=== PATIENT | female | born 1960 | race Caucasian/White ===

== ENCOUNTER 2020-09-15 13:32 | Inpatient (IN) | payer MEDICAID, OTHER ==
[~2020-09-15] VITALS: Ht 160 cm; Wt 86.4 kg
[2020-09-15 14:05] LABS: BASOPHILS % (AUTO) 0.6 % (0.0-5.0); EOSINOPHILS % (AUTO) 1.9 % (0.0-8.0); HEMATOCRIT 27.8 % (36-48); LYMPHOCYTES % (AUTO) 13.2 % (21.0-51.0); MEAN CORPUSCULAR HEMOGLOBIN 35.9 pg (27.0-33.0); MEAN CORPUSCULAR HGB CONC 33.8 g/dL (32.0-36.0); MEAN CORPUSCULAR VOLUME 106.1 fL (79-99); MONOCYTES % (AUTO) 17.4 % (3.0-13.0); NEUTROPHILS % (AUTO) 65.6 % (40.0-77.0); PLATELET COUNT (AUTO) 55 K/uL (130-400); RED BLOOD CELL COUNT(AUTO) 2.62 MIL/uL (4.00-5.50); RED CELL DISTRIBUTION WIDTH 19.1 % (11.0-15.5); WHITE BLOOD COUNT (AUTO) 5.4 K/uL (4.8-10.8)
[2020-09-15 14:12] LABS: INR 2.5 (0.85-1.15); PROTHROMBIN TIME 25.1 SEC (9.6-11.6)
[2020-09-15 14:14] LABS: PARTIAL THROMBOPLASTIN TIME 45.7 SEC (26.3-35.5)
[2020-09-15 14:16] LABS: ALANINE AMINOTRANSFERASE 28 U/L (12-78); ALCOHOL, BLOOD < 3 mg/dL (0-10); AMYLASE 31 U/L (25-115); ASPARTATE AMINOTRANSFERASE 47 U/L (10-37); BILIRUBIN,TOTAL 14.6 mg/dL (0.2-1.0); CARBON DIOXIDE 25 mmol/L (21-32); CHLORIDE 102 mmol/L (101-111); CREATINE KINASE, TOTAL 87 U/L (21-232); CREATININE 0.6 mg/dL (0.5-1.5); GLOMERULAR FILTR. RATE CALC 109 mL/min (>60); GLUCOSE,RANDOM 115 mg/dL (70-105); LIPASE 179 U/L (114-286); SODIUM SERUM 133 mmol/L (136-145); TOTAL PROTEIN, SERUM 6.8 g/dL (6.0-8.3); UREA NITROGEN, BLOOD 6 mg/dL (7-18)
[2020-09-15 14:20] LABS: AMMONIA 132 umol/L (11-32)
[2020-09-15 14:21] LABS: POTASSIUM 2.8 mmol/L (3.5-5.1)
[2020-09-15] MEDS ORDERED: POTASSIUM CHLORIDE 10% ELIXIR 20 MEQ/15 ML UDCUP ONE (14:36)
[2020-09-15] MEDS ORDERED: LACTULOSE 20 GM/30 ML UDCUP ONE (14:37)
[2020-09-15] MEDS ORDERED: LIDOCAINE HCL-MPF 1% 2ML VIAL ONE (15:42)
[2020-09-15] MEDS ORDERED: POTASSIUM CHLORIDE 20MEQ/100ML 100 ML IV ONE (15:42)
[2020-09-15] MEDS ORDERED: LORAZEPAM 2 MG/ML 1 ML VIAL IVP PRN (16:45)
[2020-09-15] MEDS: LACTULOSE 20 GM/30 ML UDCUP PO SCH (16:45)
[2020-09-15] MEDS ORDERED: PHARMACY COMMUNICATION MISC PRN (16:45)
[2020-09-15] MEDS: THIAMINE HCL 100 MG, FOLIC ACID 1 MG in 0.9%NACL 1000ML 1,000 ML IV SCH (18:00)
[2020-09-15 19:01] LABS: ALCOHOL, BLOOD < 3 mg/dL (0-10)
[2020-09-15 19:03] LABS: BILIRUBIN,DIRECT 12.2 mg/dL (0.0-0.3)
[2020-09-15 19:12] LABS: CREATININE 0.7 mg/dL (0.5-1.5); POTASSIUM 3.1 mmol/L (3.5-5.1)
[2020-09-16] VITALS (7 sets, daily range): BP systolic 115–128; BP diastolic 53–69
[2020-09-16] MEDS: LACTULOSE 20 GM/30 ML UDCUP PO SCH ×4 (00:45→23:48)
[2020-09-16 02:00] LABS: APPEARANCE,URINE Clear (CLEAR); BILIRUBIN,URINE Large (NEGATIVE); COLOR,URINE Dark Yellow (YELLOW); GLUCOSE, URINE (UA) Negative (NEGATIVE); KETONES,URINE Negative (NEGATIVE); LEUKOCYTE ESTERASE ,URINE Moderate (NEGATIVE); NITRATE,URINE Negative (NEGATIVE); OCCULT BLOOD,URINE Negative (NEGATIVE); PROTEIN,URINE Negative (NEGATIVE); UROBILINOGEN,URINE >=8.0 mg/dL (0.2-1.0)
[2020-09-16] MEDS ORDERED: LORAZEPAM 2 MG/ML 1 ML VIAL ONE (02:00)
[2020-09-16 02:16] LABS: AMPHET/METH SCREEN,URINE NEGATIVE (NEGATIVE); BACTERIA,URINE Few /HPF (None Seen); BARBITURATE SCREEN, URINE NEGATIVE (NEGATIVE); BENZODIAZEPINES SCREEN,URINE NEGATIVE (NEGATIVE); CANNABINOID SCREEN,URINE NEGATIVE (NEGATIVE); COCAINE SCREEN,URINE NEGATIVE (NEGATIVE); OPIATE SCREEN,URINE NEGATIVE (NEGATIVE); PHENCYCLIDINE SCREEN,URINE NEGATIVE (NEGATIVE); RBC,URINE 0-1 /HPF (0-1); TRICHOMONAS,URINE Few /LPF (None Seen)
[2020-09-16] MEDS ORDERED: KCL 20 MEQ ERTAB PO PRN (05:15)
[2020-09-16] MEDS ORDERED: POTASSIUM CHLORIDE 20MEQ/100ML 100 ML IV PRN (05:15)
[2020-09-16 06:04] LABS: BASOPHILS % (AUTO) 0.8 % (0.0-5.0); EOSINOPHILS % (AUTO) 2.5 % (0.0-8.0); HEMATOCRIT 26.9 % (36-48); LYMPHOCYTES % (AUTO) 16.3 % (21.0-51.0); MEAN CORPUSCULAR HEMOGLOBIN 35.6 pg (27.0-33.0); MEAN CORPUSCULAR HGB CONC 33.5 g/dL (32.0-36.0); MEAN CORPUSCULAR VOLUME 106.3 fL (79-99); MONOCYTES % (AUTO) 16.3 % (3.0-13.0); NEUTROPHILS % (AUTO) 63.1 % (40.0-77.0); PLATELET COUNT (AUTO) 49 K/uL (130-400); RED BLOOD CELL COUNT(AUTO) 2.53 MIL/uL (4.00-5.50); RED CELL DISTRIBUTION WIDTH 18.9 % (11.0-15.5); WHITE BLOOD COUNT (AUTO) 5.2 K/uL (4.8-10.8)
[2020-09-16 06:22] LABS: ALBUMIN 0.9 g/dL (3.5-5.0); BILIRUBIN,TOTAL 13.5 mg/dL (0.2-1.0); CREATININE 0.6 mg/dL (0.5-1.5); POTASSIUM 3.2 mmol/L (3.5-5.1); TOTAL PROTEIN, SERUM 6.1 g/dL (6.0-8.3)
[2020-09-16] MEDS: CHLORDIAZEPOXIDE HCL 25 MG CAP PO PRN ×2 (06:35→20:59)
[2020-09-16] MEDS: CEFTRIAXONE 1G VIAL IVP SCH (10:26)
[2020-09-16] MEDS: THIAMINE HCL 100 MG/ML 2ML VIAL IM SCH (10:27)
[2020-09-16] MEDS: FOLIC ACID 1 MG TABLET PO SCH (10:27)
[2020-09-16] MEDS: METRONIDAZOLE 500 MG TABLET PO SCH ×2 (10:29→20:59)
[2020-09-16] MEDS ORDERED: FUROSEMIDE 20MG VIAL IV SCH (13:30)
[2020-09-16] MEDS: THIAMINE HCL 100 MG, FOLIC ACID 1 MG in 0.9%NACL 1000ML 1,000 ML IV SCH (16:58)
[2020-09-16 22:56] LABS: ABG BASE EXCESS -0.8 mmol/L (-2.0-3.0); ABG HCO3 22.1 mmol/L (21.0-28.0); ABG OXYGEN SATURATION 96.3 % (95.0-99.0); ABG PCO2 30 mmHg (32-45)
[2020-09-17] VITALS (8 sets, daily range): BP systolic 99–129; BP diastolic 44–64
[2020-09-17] MEDS: POTASSIUM CHLORIDE 10% ELIXIR 20 MEQ/15 ML UDCUP PO PRN ×5 (01:04→03:27)
[2020-09-17] MEDS ORDERED: 0.9%NACL 1000ML 1,000 ML IV ONE (02:43)
[2020-09-17] MEDS: 0.9%NACL 1000ML 1,000 ML IV SCH ×2 (02:45→09:05)
[2020-09-17] MEDS: POTASSIUM CHLORIDE 10% ELIXIR 20 MEQ/15 ML UDCUP PO SCH ×2 (02:45→05:22)
[2020-09-17 04:33] LABS: MEAN CORPUSCULAR HEMOGLOBIN 36.4 pg (27.0-33.0); MEAN CORPUSCULAR HGB CONC 33.6 g/dL (32.0-36.0); MEAN CORPUSCULAR VOLUME 108.2 fL (79-99); PLATELET COUNT (AUTO) 55 K/uL (130-400); RED BLOOD CELL COUNT(AUTO) 2.31 MIL/uL (4.00-5.50); RED CELL DISTRIBUTION WIDTH 19.3 % (11.0-15.5); WHITE BLOOD COUNT (AUTO) 5.3 K/uL (4.8-10.8)
[2020-09-17 04:52] LABS: BILIRUBIN,TOTAL 13.2 mg/dL (0.2-1.0); CREATININE 0.9 mg/dL (0.5-1.5); POTASSIUM 3.3 mmol/L (3.5-5.1); TOTAL PROTEIN, SERUM 6.2 g/dL (6.0-8.3)
[2020-09-17 04:56] LABS: BILIRUBIN,DIRECT 10.3 mg/dL (0.0-0.3)
[2020-09-17 04:57] LABS: BASOPHILS % (AUTO) 0.8 % (0.0-5.0); LYMPHOCYTES % (AUTO) 19.5 % (21.0-51.0); MONOCYTES % (AUTO) 17.6 % (3.0-13.0); NEUTROPHILS % (AUTO) 58.1 % (40.0-77.0)
[2020-09-17 05:45] LABS: INR 2.47 (0.85-1.15); PROTHROMBIN TIME 24.8 SEC (9.6-11.6)
[2020-09-17] MEDS ORDERED: 0.9% NACL 250ML 250 ML IV ONE (06:31)
[2020-09-17] MEDS: CEFTRIAXONE 1G VIAL IVP SCH (07:47)
[2020-09-17] MEDS: LACTULOSE 20 GM/30 ML UDCUP PO SCH ×2 (07:48→20:49)
[2020-09-17] MEDS: PHYTONADIONE 10 MG/1 ML AMP IM SCH (07:48)
[2020-09-17] MEDS: FOLIC ACID 1 MG TABLET PO SCH (07:48)
[2020-09-17] MEDS: THIAMINE HCL 100 MG/ML 2ML VIAL IM SCH (07:49)
[2020-09-17] MEDS: METRONIDAZOLE 500 MG TABLET PO SCH ×2 (07:49→20:49)
[2020-09-17] MEDS ORDERED: 0.9%NACL 1000ML 1,000 ML IV SCH (11:30)
[2020-09-17] MEDS: THIAMINE HCL 100 MG, FOLIC ACID 1 MG in 0.9%NACL 1000ML 1,000 ML IV SCH (17:44)
[2020-09-17] MEDS: CHLORDIAZEPOXIDE HCL 25 MG CAP PO PRN (19:49)
[2020-09-18] VITALS (7 sets, daily range): BP systolic 104–126; BP diastolic 47–55
[2020-09-18 05:47] LABS: BASOPHILS % (AUTO) 1.1 % (0.0-5.0); EOSINOPHILS % (AUTO) 2.9 % (0.0-8.0); HEMATOCRIT 25.3 % (36-48); MEAN CORPUSCULAR HEMOGLOBIN 36.1 pg (27.0-33.0); MEAN CORPUSCULAR HGB CONC 33.2 g/dL (32.0-36.0); MEAN CORPUSCULAR VOLUME 108.6 fL (79-99); MONOCYTES % (AUTO) 13.2 % (3.0-13.0); NEUTROPHILS % (AUTO) 59.7 % (40.0-77.0); PLATELET COUNT (AUTO) 57 K/uL (130-400); RED BLOOD CELL COUNT(AUTO) 2.33 MIL/uL (4.00-5.50); RED CELL DISTRIBUTION WIDTH 19.8 % (11.0-15.5); WHITE BLOOD COUNT (AUTO) 5.6 K/uL (4.8-10.8)
[2020-09-18 05:55] LABS: CREATININE 0.7 mg/dL (0.5-1.5); POTASSIUM 3.2 mmol/L (3.5-5.1)
[2020-09-18] MEDS: FOLIC ACID 1 MG TABLET PO SCH (09:57)
[2020-09-18] MEDS: LACTULOSE 20 GM/30 ML UDCUP PO SCH ×2 (09:57→21:00)
[2020-09-18] MEDS: METRONIDAZOLE 500 MG TABLET PO SCH ×2 (09:57→21:00)
[2020-09-18] MEDS: CEFTRIAXONE 1G VIAL IVP SCH (10:01)
[2020-09-18] MEDS: PHYTONADIONE 10 MG/1 ML AMP IM SCH (10:57)
[2020-09-18] MEDS: THIAMINE HCL 100 MG/ML 2ML VIAL IM SCH (11:00)
[2020-09-19] MEDS: POTASSIUM CHLORIDE 10% ELIXIR 20 MEQ/15 ML UDCUP PO SCH (02:55)
[2020-09-19 04:22] VITALS: BP 104/53
[2020-09-19 04:29] LABS: BASOPHILS % (AUTO) 0.9 % (0.0-5.0); EOSINOPHILS % (AUTO) 3.7 % (0.0-8.0); LYMPHOCYTES % (AUTO) 15.5 % (21.0-51.0); MEAN CORPUSCULAR HEMOGLOBIN 36.8 pg (27.0-33.0); MEAN CORPUSCULAR HGB CONC 33.8 g/dL (32.0-36.0); MEAN CORPUSCULAR VOLUME 109.1 fL (79-99); MONOCYTES % (AUTO) 13.5 % (3.0-13.0); NEUTROPHILS % (AUTO) 65.3 % (40.0-77.0); PLATELET COUNT (AUTO) 53 K/uL (130-400); RED CELL DISTRIBUTION WIDTH 20.1 % (11.0-15.5); WHITE BLOOD COUNT (AUTO) 5.4 K/uL (4.8-10.8)
[2020-09-19 04:42] LABS: CREATININE 0.8 mg/dL (0.5-1.5)
[2020-09-19 07:34] VITALS: BP 108/49
[2020-09-19] MEDS: PHYTONADIONE 10 MG/1 ML AMP IM SCH (09:23)
[2020-09-19] MEDS: CEFTRIAXONE 1G VIAL IVP SCH (09:23)
[2020-09-19] MEDS: FOLIC ACID 1 MG TABLET PO SCH (09:24)
[2020-09-19] MEDS: METRONIDAZOLE 500 MG TABLET PO SCH ×2 (09:24→20:34)
[2020-09-19] MEDS: THIAMINE HCL 100 MG/ML 2ML VIAL IM SCH (09:24)
[2020-09-19] MEDS: LACTULOSE 20 GM/30 ML UDCUP PO SCH ×2 (09:24→20:35)
[2020-09-19 12:00] VITALS: BP 118/70
[2020-09-19 16:00] VITALS: BP 113/70
[2020-09-19 20:00] VITALS: BP 102/69
[2020-09-19] MEDS ORDERED: MORPHINE 2 MG SYG IV PRN (20:15)
[2020-09-19] MEDS ORDERED: IBUPROFEN 800 MG TAB PO PRN (20:15)
[2020-09-19] MEDS ORDERED: ACETAMINOPHEN 325 MG TAB PO PRN ×2 (20:15)
[2020-09-19] MEDS: PANTOPRAZOLE 40 MG TAB DR PO SCH (20:34)
[2020-09-20] VITALS (7 sets, daily range): BP systolic 91–127; BP diastolic 49–60
[2020-09-20] MEDS: POTASSIUM CHLORIDE 10% ELIXIR 20 MEQ/15 ML UDCUP PO SCH (03:33)
[2020-09-20 04:16] LABS: BASOPHILS % (AUTO) 0.9 % (0.0-5.0); HEMATOCRIT 23.6 % (36-48); LYMPHOCYTES % (AUTO) 18.5 % (21.0-51.0); MEAN CORPUSCULAR HEMOGLOBIN 36.4 pg (27.0-33.0); MEAN CORPUSCULAR HGB CONC 33.1 g/dL (32.0-36.0); MEAN CORPUSCULAR VOLUME 110.3 fL (79-99); NEUTROPHILS % (AUTO) 61.3 % (40.0-77.0); PLATELET COUNT (AUTO) 54 K/uL (130-400); RED BLOOD CELL COUNT(AUTO) 2.14 MIL/uL (4.00-5.50); RED CELL DISTRIBUTION WIDTH 20.8 % (11.0-15.5); WHITE BLOOD COUNT (AUTO) 4.7 K/uL (4.8-10.8)
[2020-09-20 04:31] LABS: BILIRUBIN,TOTAL 10.1 mg/dL (0.2-1.0); CREATININE 0.8 mg/dL (0.5-1.5); POTASSIUM 3.3 mmol/L (3.5-5.1); TOTAL PROTEIN, SERUM 6.3 g/dL (6.0-8.3)
[2020-09-20] MEDS: LACTULOSE 20 GM/30 ML UDCUP PO SCH ×2 (08:47→20:04)
[2020-09-20] MEDS: ACETAMINOPHEN WITH CODEINE 1 TAB TAB PO PRN ×2 (08:48→20:05)
[2020-09-20] MEDS: METRONIDAZOLE 500 MG TABLET PO SCH ×2 (08:48→20:04)
[2020-09-20] MEDS: FOLIC ACID 1 MG TABLET PO SCH (08:48)
[2020-09-20] MEDS: THIAMINE HCL 100 MG/ML 2ML VIAL IM SCH (08:49)
[2020-09-20] MEDS: PANTOPRAZOLE 40 MG TAB DR PO SCH (08:49)
[2020-09-20] MEDS: CEFTRIAXONE 1G VIAL IVP SCH (11:26)
[2020-09-20 12:12] LABS: INR 2.43 (0.85-1.15); PROTHROMBIN TIME 24.4 SEC (9.6-11.6)
[2020-09-20] MEDS: NICOTINE 7 MG/ 24 HR PATCH TD SCH (14:49)
[2020-09-21] MEDS: POTASSIUM CHLORIDE 10% ELIXIR 20 MEQ/15 ML UDCUP PO SCH (03:11)
[2020-09-21 04:27] VITALS: BP 113/71
[2020-09-21] MEDS: ACETAMINOPHEN WITH CODEINE 1 TAB TAB PO PRN (06:52)
[2020-09-21 08:00] VITALS: BP 108/56
[2020-09-21] MEDS: PANTOPRAZOLE 40 MG TAB DR PO SCH (09:32)
[2020-09-21] MEDS: CEFTRIAXONE 1G VIAL IVP SCH (09:32)
[2020-09-21] MEDS: METRONIDAZOLE 500 MG TABLET PO SCH (09:32)
[2020-09-21] MEDS: FOLIC ACID 1 MG TABLET PO SCH (09:32)
[2020-09-21] MEDS: LACTULOSE 20 GM/30 ML UDCUP PO SCH (09:33)
[2020-09-21] MEDS: NICOTINE 7 MG/ 24 HR PATCH TD SCH (09:33)
[2020-09-21] MEDS: THIAMINE HCL 100 MG/ML 2ML VIAL IM SCH (09:33)
[2020-09-21 10:40] LABS: CREATININE 0.9 mg/dL (0.5-1.5); POTASSIUM 4.1 mmol/L (3.5-5.1)
[2020-09-21] MEDS ORDERED: THIA100T78 PO (11:02)
[2020-09-21] MEDS ORDERED: LACT PO (11:02)
[2020-09-21] MEDS ORDERED: FOLI1 PO (11:02)
[2020-09-21] MEDS ORDERED: METR500T PO (11:02)
[2020-09-21] MEDS ORDERED: PANT40TA PO (11:02)
[2020-09-21 11:42] VITALS: BP 99/62
[2020-09-24 15:09] LABS: CHLAMYDIA DNA N.A.AMPLIFY Negative (Negative)
== END 2020-09-21 13:30 | disposition home or self-care (01) | DRG 52 ==
LOC: EDH 13:32 → EDHIP 13:33 → 3CH 09-16 01:41 → 4BH 09-16 14:15
PROVIDERS: ADMIT Internal Medicine; ATTEND Internal Medicine
PROC: 30233K1 Transfusion of Nonautologous Frozen Plasma into Peripheral Vein, Percutaneous Approach (ICD-10-PCS; principal; 2020-09-17)
DX: G93.41 Metabolic encephalopathy (principal); D69.6 Thrombocytopenia, unspecified; E87.6 Hypokalemia; E87.1 Hypo-osmolality and hyponatremia; E88.09 Other disorders of plasma-protein metabolism, not elsewhere classified; F10.239 Alcohol dependence with withdrawal, unspecified; K70.31 Alcoholic cirrhosis of liver with ascites; K57.90 Diverticulosis of intestine, part unspecified, without perforation or abscess without bleeding; N39.0 Urinary tract infection, site not specified; K70.40 Alcoholic hepatic failure without coma; D69.59 Other secondary thrombocytopenia; I31.3 Pericardial effusion (noninflammatory); Z60.2 Problems related to living alone; F17.210 Nicotine dependence, cigarettes, uncomplicated; D64.9 Anemia, unspecified; R16.1 Splenomegaly, not elsewhere classified; A59.9 Trichomoniasis, unspecified; E72.20 Disorder of urea cycle metabolism, unspecified; D68.4 Acquired coagulation factor deficiency; R53.81 Other malaise; Z74.01 Bed confinement status; Z88.8 Allergy status to other drugs, medicaments and biological substances
CPT/HCPCS: 0099U; 36415; 36430; 36600; 74018; 74176; 76705; 80048; 80053; 80076; 80305; 81001; 82140; 82150; 82247; 82248; 82270; 82435; 82550; 82728; 82803; 82947; 83010; 83540; 83605; 83615; 83690; 83880; 84132; 84145; 84295; 84484; 85018; 85025; 85610; 85730; 86850; 86900; 86901; 86927; 87040; 87088; 87486; 87797; 93005; 93306; 93356; 93970; 97039; G0378; J0696; J1940; J2060; J3411; J3430; J3480; J3490; J7030; J7050; P9017